=== PATIENT | female | born 1980 | race Caucasian/White ===

== ENCOUNTER 2022-08-15 08:18 | Observation (INO) | payer OTHER ==
[2022-08-10 17:51] LABS: Hemoglobin 12.5 g/dL (12.0-15.5); Mean Corpuscular HGB CONC 34.7 g/dL (32.0-36.0); Mean Corpuscular Hemoglobin 31.2 pg (27.0-33.0); Mean Corpuscular Volume 89.8 fl (81.6-98.3); Mean Platelet Volume 11.3 fl (7.4-10.4); Platelet Count 247 10x3/uL (150-450); Red Blood Cell (RBC) Count 4.01 10x6/uL (3.90-5.03); White Blood Cell (WBC) Count 9.9 10x3/uL (3.5-10.5)
[2022-08-10 18:00] LABS: BHCG - Serum Negative (NEGATIVE); Pregs Control Background? CLEAR/WHITE (CLR/WHITE); Pregs Control Bar Appear? YES (CONTROL BAR)
[2022-08-14 08:56] VITALS: BMI 20.1
[2022-08-15] MEDS ORDERED: Famotidine/PF 20 mg/2ml Vial ONE (08:45)
[2022-08-15] MEDS ORDERED: Gabapentin 300 MG CAP ONE (08:45)
[2022-08-15] MEDS ORDERED: CeleCOXIB 100 MG CAP ONE (08:46)
[2022-08-15] MEDS ORDERED: metroNIDAZOLE 500 MG/100 ML BAG ONE (09:27)
[2022-08-15] MEDS ORDERED: Bupivacaine PF 0.5% 30 ML VIAL ONE (12:00)
[2022-08-15] MEDS ORDERED: EPINEPHrine 1 MG/ML AMP ONE (12:00)
[2022-08-15] MEDS ORDERED: PROPOFOL 20 ML ONE (13:03)
[2022-08-15] MEDS ORDERED: Fentanyl 100 MCG/2 ML VIAL ONE ×2 (13:04→16:13)
[2022-08-15] MEDS ORDERED: Lidocaine 1% PF 5 ML VIAL ONE (13:05)
[2022-08-15] MEDS ORDERED: Ondansetron PF 4 MG/2 ML Vial ONE (13:05)
[2022-08-15] MEDS ORDERED: Dexamethasone 20 MG/5 ML VIAL ONE (13:05)
[2022-08-15] MEDS ORDERED: Rocuronium Bromide 10 MG/ML (10ML VIAL) ONE (13:05)
[2022-08-15] MEDS ORDERED: CEFAZOLIN 2 GM VIAL ONE (13:28)
[2022-08-15] MEDS ORDERED: Midazolam HCl 2 mg/2 ml Vial ONE (13:38)
[2022-08-15] MEDS ORDERED: ePHEDrine Sulfate 50 MG/10 ML VIAL ONE (14:22)
[2022-08-15] MEDS ORDERED: Glycopyrrolate 0.2 MG/ML 5 ML SYRINGE ONE (16:12)
[2022-08-15] MEDS ORDERED: Acetaminophen 325 MG TAB PO PRN (16:19)
[2022-08-15] MEDS ORDERED: Simethicone Chewable 80 MG TAB PO PRN (16:19)
[2022-08-15] MEDS ORDERED: Promethazine HCl 25 MG/ML VIAL IM PRN (16:19)
[2022-08-15] MEDS ORDERED: diphenhydrAMINE 25 MG CAP PO PRN (16:19)
[2022-08-15] MEDS ORDERED: Zolpidem Tartrate 5 MG TAB PO PRN (16:19)
[2022-08-15] MEDS ORDERED: Bisacodyl 10 MG SUPP PR PRN (16:19)
[2022-08-15] MEDS ORDERED: HYDROcodone/Acetaminophen 5/325 mg Tablet PO PRN (16:19)
[2022-08-15] MEDS ORDERED: Ondansetron PF 4 MG/2 ML Vial IVP PRN (16:19)
[2022-08-15] MEDS: Lactated Ringer's 1,000 ML IV SCH ×2 (17:21→20:13)
[2022-08-15] MEDS: Fentanyl 100 MCG/2 ML VIAL SLOW IVP SCH ×2 (17:21→18:20)
[2022-08-15] MEDS: Ketorolac Tromethamine 30 MG/ML VIAL IVP SCH ×2 (17:27→23:13)
[2022-08-15] MEDS ORDERED: Fentanyl 100 MCG/2 ML VIAL SLOW IVP PRN (19:15)
[2022-08-15] MEDS: HYDROcodone/Acetaminophen 5/325 mg Tablet PO PRN (20:08)
[2022-08-16] MEDS: HYDROcodone/Acetaminophen 5/325 mg Tablet PO PRN ×3 (00:50→09:30)
[2022-08-16] MEDS: Ketorolac Tromethamine 30 MG/ML VIAL IVP SCH (05:39)
[2022-08-16] MEDS: Lactated Ringer's 1,000 ML IV SCH (05:46)
[2022-08-16] MEDS ORDERED: Levothyroxine Sodium 75 MCG TAB PO SCH (06:00)
[2022-08-16 06:03] LABS: Hemoglobin 11.6 g/dL (12.0-15.5); Mean Corpuscular HGB CONC 34.9 g/dL (32.0-36.0); Mean Corpuscular Hemoglobin 31.1 pg (27.0-33.0); Mean Platelet Volume 11.5 fl (7.4-10.4); Platelet Count 216 10x3/uL (150-450); RBC Distribution Width 13.2 % (11.5-14.5); Red Blood Cell (RBC) Count 3.73 10x6/uL (3.90-5.03); White Blood Cell (WBC) Count 14.4 10x3/uL (3.5-10.5)
[2022-08-16 07:58] VITALS: BP 93/50; TEMP 99
[2022-08-21] MEDS ORDERED: Ibuprofen 800 MG TAB PO SCH (06:00)
== END 2022-08-16 11:40 | disposition home or self-care (01) ==
LOC: CSHSDC 08:18 → CSHPP 16:27
PROVIDERS: ADMIT Student in an Organized Health Care Education/Training Program; ATTEND Student in an Organized Health Care Education/Training Program
PROC: 0UT94ZZ Resection of Uterus, Percutaneous Endoscopic Approach (ICD-10-PCS; principal; 2022-08-15)
PROC: 0UT24ZZ Resection of Bilateral Ovaries, Percutaneous Endoscopic Approach (ICD-10-PCS; 2022-08-15)
PROC: 0UT74ZZ Resection of Bilateral Fallopian Tubes, Percutaneous Endoscopic Approach (ICD-10-PCS; 2022-08-15)
DX: Z15.01 Genetic susceptibility to malignant neoplasm of breast (principal); G89.18 Other acute postprocedural pain; N83.01 Follicular cyst of right ovary; N83.02 Follicular cyst of left ovary; N83.8 Other noninflammatory disorders of ovary, fallopian tube and broad ligament; E03.9 Hypothyroidism, unspecified; Z79.899 Other long term (current) drug therapy
CPT/HCPCS: 36415; 84703; 85027; 86850; 86900; 86901; 88307; J0171; J1100; J1885; J2250; J2405; J2704; J3010; J7120; S0020; S0028

== ENCOUNTER 2022-12-06 15:36 | Outpatient (CLI) | payer OTHER | END 2022-12-06 15:37 | disposition home or self-care (01) | LOC: CSHCT 15:36 | PROVIDERS: ATTEND Family Medicine | DX: R10.9 Unspecified abdominal pain (principal) | CPT/HCPCS: 74176 ==